=== PATIENT | female | born 1985 | race Caucasian/White ===

== ENCOUNTER → 2017-01-12 | Day surgery (SDC) | payer OTHER ==
[~2017-01-12] VITALS: Ht 157.5 cm; Wt 69.1 kg
[~2017-01-12] MED LIST: LAXATIVE FEMININ5 MG PO; PRILOSEC OTC20 MG PO
--- NOTE | ~2017-01-12 | OR ---
PATIENT'S NAME: TYLER ALMANZAR [facility] AGE: 31 Y [address] ROOM: [place] [id number] LOCATION: GEND ADMIT DATE: 01/12/2017 OR/Procedure Report DISCHARGE DATE: FAMILY PHYSICIAN: Jasmin Pulliam DO ATTENDING PHYSICIAN: ADALBERTO ROSENTHAL SURGEON: Audrey Huerta MD SUPERVISOR LAUNDRY: DATE OF PROCEDURE: 01/12/2017 PROCEDURE PERFORMED: Esophagogastroduodenoscopy. INDICATIONS FOR PROCEDURE: Questionable history of celiac disease, history of H. pylori, and abdominal pain, nausea, and vomiting. MEDICATIONS: Please see Anesthesiology record for details. CONSENT: The risks/benefits/alternatives were discussed and the patient or her power of finance attorney expressed understanding and agreed to proceed. Informed consent was obtained and placed in the chart. Time-out was completed prior to starting the procedure. DESCRIPTION OF PROCEDURE: Patient was placed in the left lateral decubitus position. One-lead EKG monitoring was used along with intermittent blood pressure monitoring and pulse oximetry. Bite block was placed in the patient's mouth. The above medications were given and titrated to response. Once adequate sedation was completed, the endoscope was passed through the patient's mouth into the posterior oropharynx. The endoscope was then passed into the esophagus, stomach and duodenal bulb. The duodenum was examined through the third portion. The endoscope was then withdrawn into the stomach. In the stomach, retroflexion was completed. The scope was then straightened and withdrawn from the patient. The patient tolerated the procedure well. There were no complications. SUMMARY OF FINDINGS: 1. Normal esophagus. 2. Normal stomach status post biopsies to rule out H. pylori. 3. Normal duodenum status post biopsies to evaluate for celiac disease. ASSESSMENT AND PLAN: Questionable history of celiac disease: The patient has been gluten free for one month. Therefore, I explained to her that the biopsies today may not be reflective of the true condition as may be she has already started to have healing of the mucosa. It will be very important to review the initial pathology report from her esophagogastroduodenoscopy that was done over a month ago. I recommend she follow up in clinic for further treatment. If she feels better on a gluten free diet that she should continue PATIENT'S NAME: TYLER ALMANZAR [facility] AGE: 31 Y [address] ROOM: [place] [address] LOCATION: GEND ADMIT DATE: 01/12/2017 OR/Procedure Report DISCHARGE DATE: FAMILY PHYSICIAN: Jasmin Pulliam DO ATTENDING PHYSICIAN: ADALBERTO ROSENTHAL on that especially, if the biopsies of the first endoscopy were diagnostic for celiac disease. We will proceed with colonoscopy. J MD MARISELA RAY/ronnie /[id number] d: 01/12/17 1514 t: 01/16/17 1426, OPERATIVE SUMMARY
--- NOTE | ~2017-01-12 | OR ---
PATIENT'S NAME: TYLER ALMANZAR [facility] AGE: 31 Y [address] ROOM: [place] [id number] LOCATION: GEND ADMIT DATE: 01/12/2017 OR/Procedure Report DISCHARGE DATE: FAMILY PHYSICIAN: Jasmin Pulliam DO ATTENDING PHYSICIAN: ADALBERTO ROSENTHAL SURGEON: Audrey Huerta MD DIVINITY TEACHER: DATE OF PROCEDURE: 01/12/2017 PROCEDURE PERFORMED: Colonoscopy with biopsies. INDICATIONS: Diarrhea and rectal bleeding. MEDICATIONS: Please see anesthesiology record for details. CONSENT: The risks/benefits/alternatives were discussed and the patient or her power of business attorney expressed understanding and agreed to proceed. Informed consent was obtained and placed on the chart. Time-out was completed prior to starting the procedure. DESCRIPTION OF PROCEDURE: Patient was placed in the left lateral decubitus position. One lead EKG monitoring was used along with intermittent blood pressure monitoring and pulse oximetry. The above medications were given and titrated to response. Once adequate sedation was completed, rectal exam was performed. The colonoscope was then passed through the rectum, into the sigmoid colon. The scope was then passed through the descending, transverse and ascending colon. The scope was then passed into the cecum. The cecum was identified by the ileocecal valve and appendiceal orifice. The scope was then withdrawn. On withdrawal, the mucosa of the colon was examined. In the rectum, retroflexion was completed. The scope was then withdrawn from the patient. The patient tolerated the procedure well. There were no complications. SUMMARY FINDINGS: 1. Normal colonic mucosa from the rectum to the cecum. There were no polyps or other lesions noted. 2. The terminal ileum was intubated and appeared completely normal. 3. Biopsies were taken throughout the colon to rule out microscopic colitis. 4. Internal hemorrhoids, small, nonbleeding. ASSESSMENT AND PLAN: Rectal bleeding and diarrhea: I suspect the patient's symptoms are most likely from irritable bowel syndrome. It is possible that this could be from celiac disease. Therefore, we will need to review the previous pathology report. There is no evidence of inflammatory bowel disease on the exam today. We will await biopsies to rule out microscopic colitis. I PATIENT'S NAME: TYLER ALMANZAR [facility] AGE: 31 Y [address] ROOM: [place] [id number] LOCATION: GEND ADMIT DATE: 01/12/2017 OR/Procedure Report DISCHARGE DATE: FAMILY PHYSICIAN: Jasmin Pulliam DO ATTENDING PHYSICIAN: ADALBERTO ROSENTHAL suspect the rectal bleeding is most likely from internal hemorrhoids. I will have her follow up in clinic in 2 to 4 weeks. J MD MARISELA RAY/ronnie /[id number] d: 01/12/17 1511 t: 01/16/17 1429, OPERATIVE SUMMARY
== END ==
LOC: GPOC 01-11 10:00 → GEND 08:06 → GPOC 10:00
PROC: 0DBE8ZX Excision of Large Intestine, Via Natural or Artificial Opening Endoscopic, Diagnostic (ICD-10-PCS; principal; 2017-01-12)
PROC: 0DB68ZX Excision of Stomach, Via Natural or Artificial Opening Endoscopic, Diagnostic (ICD-10-PCS; 2017-01-12)
PROC: 0DB88ZX Excision of Small Intestine, Via Natural or Artificial Opening Endoscopic, Diagnostic (ICD-10-PCS; 2017-01-12)
DX: K64.8 Other hemorrhoids (principal); K59.00 Constipation, unspecified; Z91.040 Latex allergy status; Z79.899 Other long term (current) drug therapy
CPT/HCPCS: J7030